=== PATIENT | female | born 1965 | race Caucasian/White ===

== ENCOUNTER → 2021-01-23 11:50 | Outpatient (CLI) | payer BC, SELFPAY ==
--- NOTE | ~2021-01-23 | XR_ITS ---
XR knee RT min 4V 01/23/2021 12:44 INDICATION: Right knee pain PROCEDURE: 4 views right knee COMPARISON: No prior studies for comparison. FINDINGS: Fracture, dislocation or subluxation is not identified. The soft tissues appear within norm al limits. No foreign bodies are identified. IMPRESSION: 1: NO ACUTE BONE OR JOINT ABNORMALITY IDENTIFIED. Reviewed, dictated and finalized at location A.
== END ==
PROVIDERS: PCP Physician Assistant; Visit Provider Family Medicine
DX: M25.561 Pain in right knee (principal)
CPT/HCPCS: 73564

== ENCOUNTER → 2023-03-02 15:57 | Outpatient (CLI) | payer OTHER, SELFPAY ==
--- NOTE | ~2023-03-02 | MM_ITS ---
EXAMINATION: MM screening brinda BI w jana HISTORY: Screening mammogram TECHNIQUE: Craniocaudal and mediolateral oblique 3-D tomosynthesis images were obtained and synthetic 2-D images were generated. CAD analysis was submitted and interpreted. COMPARISON: 12/07/2011 BREAST PARENCHYMAL COMPOSITION: There are scattered areas of fibroglandular density. FINDINGS: No suspicious mass, calcification, or architectural distortion are identified in either lauren ast to suggest malignancy. There has been no suspicious interval change. IMPRESSION: 1. No mammographic evidence of malignancy. 2. Recommend routine screening mammography in one year. BI-RADS Category 1: Negative Reviewed, dictated and finalized at location A.
== END ==
PROVIDERS: PCP Obstetrics & Gynecology; Visit Provider Obstetrics & Gynecology
DX: Z12.31 Encounter for screening mammogram for malignant neoplasm of breast (principal)
CPT/HCPCS: 77063; 77067

== ENCOUNTER 2024-03-15 08:40 | Outpatient (CLI) | payer OTHER, SELFPAY ==
--- NOTE | ~2024-03-15 | MR_ITS ---
MRI of the left hindfoot Clinical history: Pain Technique: Coronal proton-density and proton-density fat-sat images, axial proton-density and proton- density fat-sat images, and sagittal proton-density and proton-density fat-sat images were acquired. Findings: Syndesmotic ligaments are intact. Anterior and posterior talofibular ligaments, and calcane ofibular ligament are intact. Deltoid ligament is intact. Medial flexor tendons, peroneus longus tendon, anterior extensor tendons, and Achilles tendon are int act. There is a longitudinal split tear of the peroneus brevis tendon just distal to the lateral mall eolar tip. There is no osteochondral lesion of the talar dome. There is extensive amorphous marrow edema of the medial cuneiform. Suspected focal linear insufficiency fracture at the proximal aspect the medial cun eiform. Remaining bone marrow signals are essentially unremarkable. There is moderate degenerative ar ticulation of the navicular with the medial cuneiform. There is moderate degenerative change of the f irst TMT joint. Plantar fascia is intact, mild thickening and increased signal proximally, but no surrounding soft ti ssue edema. Small plantar calcaneal spur present. Intrinsic musculature of the foot is unremarkable.. Impression: Findings consistent with focal insufficiency fracture the proximal aspect of the medial cuneiform wit h extensive surrounding marrow edema. Longitudinal split tear of the peroneus brevis tendon, as detailed above. Moderate degenerative change of the medial naviculocuneiform articulation and the first TMT joint. Reviewed, dictated and finalized at location . Impression: Findings consistent with focal insufficiency fracture the proximal aspect of th e medial cuneiform with extensive surrounding marrow edema. Longitudinal split tear of the peroneus brevis tendon, as detailed above. Moderate degenerative change of the medial naviculocuneiform articulation and t he first TMT joint.
== END 2024-03-15 08:41 ==
LOC: MICIMG 08:40
PROVIDERS: PCP Family Medicine
DX: M66.272 Spontaneous rupture of extensor tendons, left ankle and foot (principal); M65.872 Other synovitis and tenosynovitis, left ankle and foot; M77.52 Other enthesopathy of left foot and ankle; S86.312A Strain of muscle(s) and tendon(s) of peroneal muscle group at lower leg level, left leg, initial encounter; M19.072 Primary osteoarthritis, left ankle and foot; X58.XXXA Exposure to other specified factors, initial encounter
CPT/HCPCS: 73718

== ENCOUNTER 2025-07-25 13:42 | Emergency (ER) | payer OTHER, SELFPAY ==
--- OUTSIDE RECORDS SUMMARY | 2007-04-19 10:55 | XMS_ITS | Continuity of Care Document ---
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 , [address], [place], [address], [place]. tel:[phone] Referring Provider: Hector Mackenzie, [address] [place] [address], [address]. tel:[phone] Family History Family Member Type Diagnosis Age At Onset No Information Payers Payer name Insurance type Covered green party ID Authorcaseya lisetjace(s) [facility] [id number] Social History Type Description Quantity Date Captured Comments Sex Female Smoking Status No Information Chief Complaint And Reason For Visit No Information Reason For Referral Reason For Referral No Information History Of Present Illness Encounter Date Complaint History Of Prese nt Illness No Information Functional Status Date Functional Assessmen t No Information Instructions Date Instruction Additional Infor mation No Information Assessments Type Assessment Date No Information Patient Care Teams Name Effective Dates (start - stop) Status Members No Information
--- OUTSIDE RECORDS SUMMARY | 2007-04-19 10:55 | XMS_ITS | Continuity of Care Document ---
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 , [address], [place], [address], [place]. tel:[phone] Referring Provider: Hector Mackenzie, [address] [place] [address], [address]. tel:[phone] Family History Family Member Type Diagnosis Age At Onset No Information Payers Payer name Insurance type Covered alliance party ID Authorcaseya lisetjace(s) [facility] [id number] Social History Type Description Quantity Date Captured [...]
--- NOTE | ~2025-07-25 | XR_ITS ---
EXAMINATION: XR chest 2V 07/25/2025 14:20 INDICATION: Chest pressure PROCEDURE: 2 view chest COMPARISON: No prior studies for comparison. FINDINGS: The lungs are clear. The cardiomediastinal silhouette is within normal limits. There are no pleural effusions. There is no pneumothorax suspected. IMPRESSION: 1: NO ACUTE CARDIOPULMONARY DISEASE. Reviewed, dictated and finalized at location O.
--- NOTE | 2025-07-25 13:43 | ECG_ITS ---
Test Date: 2025-07-25 13:51:44 Measurements Intervals [place] Rate: 69 P: 51 NE: 183 QRS: 21 QRSD: 91 T: 30 QT: 383 QTc: 411 Interpretive Statements SINUS RHYTHM LOW QRS VOLTAGE IN PRECORDIAL LEADS [QRS DEFLECTION < 1.0 mV IN CHEST LEADS] WITHIN NORMAL LIMITS No previous ECG available for comparison Electronically Signed On 07-26-2025 12:43:31 CDT by Adarsh Salas M.D.
[2025-07-25 14:00] VITALS: BP 143/83; PULSE 73; PULSE 78; RESP 16; TEMP 36.8; O2SAT 100
[2025-07-25 14:13] LABS: Hematocrit 42.9 % (37.0-47.0); Hemoglobin 14.6 g/dL (12.0-15.0); Immature Granulocyte Percent A 0.3 % (0-0.5); Lymphocytes Absolute Auto 3.06 K/mm3 (0.9-3.2); Mean Corpuscular HGB Conc 34.0 g/dl (32-36); Mean Corpuscular Hemoglobin 30.9 pg (26-34); Mean Corpuscular Volume 90.9 fl (80-100); Nucleated Red Blood Cells Absolute Auto 0.000 K/mm3 (0.0-0.012); Nucleated Red Blood Cells Perc 0.0 % (0.0-0.2); Platelet Count Result 370 k/mm3 (150-375); Red Blood Count 4.72 M/mm3 (4.2-5.4); White Blood Count 6.7 K/mm3 (4.5-10.0)
--- OUTSIDE RECORDS SUMMARY | 2025-07-25 14:25 | XMS_ITS | Data Portability ---
Author Organization [place] [facility] [employer], Main Office Address [address] [place] [address] Care Team Providers Care Application Development Specialist Name Role Phone JON QUINTERO Primary Care Provider JON QUINTERO Referring Provider [phone] Assessment No assessment recorded. Plan of Treatment Reminders Order Date Submit Date Provider Last Modified By Organization Details Last Modified Time Details Appointments None recorded. Lab vitamin B12 + folate, serum or blood 2022 023 [employer] [facility], [address], [place], [address], 3 10:13:39 T3, free, serum or plasma 2022 023 [employer] [facility], [address], [place], [address], 3 10:13:44 T4, free, serum 2022 023 [employer] [facility], [address], [place], [address], 3 10:13:42 TSH, serum or plasma 2022 023 [employer] [facility], [address], [place], [address], 3 10:13:41 CMP, serum or plasma 2022 023 [employer] [facility], [address], [place], [address], 3 10:15:00 Referral None recorded. Procedures None recorded. Surgeries None recorded. Imaging None recorded. Medication Orders cyanocobala min (vit B-12) 1,000 mcg/mL injection solution 2022 023 [email or web address] [facility], [address] [place] [address], [address], 3 14:11:46 Prempro 0.3 mg-1.5 mg tablet 2022 023 [id number] [employer] [facility], [address] [facility], [place], [place], [id number], 3 14:11:46 Synthroid 100 mcg tablet 2022 023 [id number], [address] [place] [address], [address], 3 14:11:46 Patient TargetsNo targets recorded. Patient InstructionsNo instructions recorded. Reason for Referral None Reported. Results Created Date Observation Date Name Description Value Unit Range Abnormal Flag Note LastModifiedBy Organization Detail LastModifiedTime 08/12/2008/19/2022 VITAM IN B12/F OLATE , SERUM PANEL vitamin B12 414 pg/mL 200-11 00 normal Not Available [facility] [employer] [address], [address], 08/19/2022 09:49:51 08/12/2008/19/2022 VITAM IN B12/F OLATE , SERUM PANEL folate, serum 10.0 NG/mL normal Refer ence Range Low: <3.4 Borde rline : 3.4-5 .4 Anjali l: >5.4 Not Available [facility] [address] [place], [address], 08/19/2022 09:49:51 08/12/2008/19/2022 CORTI MOISÉS, A.M. cortisol, A.M. 0.5 mcg/d L low Refer ence Range 8 a.m. (7-9 a.m.) Speci men: 4.0-2 2.0 Not Available [address], [address], 08/19/2022 09:49:50 08/12/20 22 08/19/2022 TSH TSH 0.08 mIU/L low Refer ence Range > or = 20 Years 0.40- 4.50 Pregn corina Range s First trime ster 0.26- 2.66 Secon d trime ster 0.55- 2.73 Third trime ster 0.43- 2.91 Not Available [address], [address], 08/19/2022 09:49:49 08/12/20 22 08/19/2022 T4, FREE T4, free 1.4 NG/dL 0.8-1. 8 normal Not Available [address], [address], 08/19/2022 09:49:49 08/12/2008/19/2022 THYRO ID PEROX IDASE AND THYRO GLOBU ESSIE ANTIB ODIES thyroglobuli n antibodies 40 IU/mL < or = 1 high Not Available [address], [address], 08/19/2022 09:49:48 08/12/2008/19/2022 THYRO ID PEROX IDASE AND THYRO GLOBU ESSIE ANTIB ODIES thyroid peroxidase antibodies 75 IU/mL <9 high Not Available [address], [address], 08/19/2022 09:49:48 08/12/2008/19/2022 DEXAM ETHAS ONE dexamethason e 445 NG/dL Refer ence Range s for Dexam ethas one: Basel ine: Less than 20 ng/dL 1 mg dexam ethas one overn ight: 180-5 50 ng/dL (8:00 -10:0 0 AM) This test was devel oped and its jacinto tical perfo rmanc e eliana cteri stics have been deter mined by [facility] . It has not been clear ed or appro nolvia by FDA. This assay has been valid ated pursu ant to the CLIA regul ation s and is used for clini kierra purpo ses. Not Available [facility] [address] [place] [address] [place], [address], 08/19/2022 09:49:47 08/12/2008/19/2022 COMPR EHENS DANIEL METAB OLIC PANEL glucose 107 mg/dL 65-99 high Fasti ng refer ence inter bj For someo ne witho ut known diabe radha, a gluco se value betwe en 100 and 125 mg/dL is consi stent with predi abete s and shoul d be confi rmed with a follo w-up test. Not Available [facility] [address] [address] [place], [address], 08/19/2022 09:49:46 08/12/2008/19/2022 COMPR EHENS DANIEL METAB OLIC PANEL urea nitrogen (BUN) 23 mg/dL 7-25 normal Not Available [facility] [address] [address] [place], [address], 08/19/2022 09:49:46 08/12/2008/19/2022 COMPR EHENS DANIEL METAB OLIC PANEL creatinine 0.94 mg/dL 0.50-1 .03 normal Not Available [facility] [address] [address] [place], [address], 08/19/2022 09:49:46 08/12/2008/19/2022 COMPR EHENS DANIEL METAB OLIC PANEL eGFR 72 mL/mi n/1.7 3m2 > or = 60 normal The eGFR is based on the CKD-E PI 2020 equat ion. To calcu late the new eGFR from a previ ous Creat inine or Cysta tin C resul t, go to https ://marcos ye.westley nietoy.o amaya/pr ofess ional s/ kdoqi /gfr% 5Fcal culat or Not Available [address], [address], 08/19/2022 09:49:46 08/12/20 22 08/19/2022 COMPR EHENS DANIEL METAB OLIC PANEL BUN/creatini ne ratio not applic able (calc ) 6-22 Not Available [address], [address], 08/19/2022 09:49:46 08/12/2008/19/2022 COMPR EHENS DANIEL METAB OLIC PANEL sodium 139 mmol/ L 135-14 6 normal Not Available [address], [address], 08/19/2022 09:49:46 08/12/20 22 08/19/2022 COMPR EHENS DANIEL METAB OLIC PANEL potassium 3.9 mmol/ L 3.5-5. 3 normal Not Available [address], [address], 08/19/2022 09:49:46 08/12/20 22 08/19/2022 COMPR EHENS DANIEL METAB OLIC PANEL chloride 104 mmol/ L 98-110 normal Not Available [address], [address], 08/19/2022 09:49:46 08/12/20 22 08/19/2022 COMPR EHENS DANIEL METAB OLIC PANEL carbon dioxide 30 mmol/ L 20-32 normal Not Available [address], [address], 08/19/2022 09:49:46 08/12/20 22 08/19/2022 COMPR EHENS DANIEL METAB OLIC PANEL calcium 10.2 mg/dL 8.6-10 .4 normal Not Available [facility] [address], [address], 08/19/2022 09:49:46 08/12/2008/19/2022 COMPR EHENS DANIEL METAB OLIC PANEL protein, total 6.9 g/dL 6.1-8. 1 normal Not Available [address], [address], 08/19/2022 09:49:46 08/12/2008/19/2022 COMPR EHENS DANIEL METAB OLIC PANEL albumin 4.4 g/dL 3.6-5. 1 normal Not Available [address], [address], 08/19/2022 09:49:46 08/12/2008/19/2022 COMPR EHENS DANIEL METAB OLIC PANEL globulin 2.5 g/dL_ (calc ) 1.9-3. 7 normal Not Available [address], [address], 08/19/2022 09:49:46 08/12/2008/19/2022 COMPR EHENS DANIEL METAB OLIC PANEL albumin/glob ulin ratio 1.8 (calc ) 1.0-2. 5 normal Not Available [address], [address], 08/19/2022 09:49:46 08/12/2008/19/2022 COMPR EHENS DANIEL METAB OLIC PANEL bilirubin, total 0.5 mg/dL 0.2-1. 2 normal Not Available [address], [address], 08/19/2022 09:49:46 08/12/2008/19/2022 COMPR EHENS DANIEL METAB OLIC PANEL alkaline phosphatase 62 U/L 37-153 normal Not Available [place] [address] [place], [address], 08/19/2022 09:49:46 08/12/20 22 08/19/2022 COMPR EHENS DANIEL METAB OLIC PANEL AST 18 U/L 10-35 normal Not Available [address], [address], 08/19/2022 09:49:46 08/12/20 22 08/19/2022 COMPR EHENS DANIEL METAB OLIC PANEL ALT 28 U/L 6-29 normal Not Available [address], [address], 08/19/2022 09:49:46 03/08/20 23 03/10/2023 LIPID PANEL , STAND [place]TE cholesterol, total 211 mg/dL <200 high Not Available [address], [address], 03/10/2023 12:29:17 03/08/20 23 03/10/2023 LIPID PANEL , [place] HDL cholesterol 87 mg/dL > or = 50 normal Not Available [address], [address], 03/10/2023 12:29:17 03/08/20 23 03/10/2023 LIPID PANEL , STAND [place] triglyceride s 57 mg/dL <150 normal Not Available [address], [address], 03/10/2023 12:29:17 03/08/20 23 03/10/2023 LIPID PANEL , [place]AND [place] LDL-choleste rol 110 mg/dL _(kierra c) high Refer ence range : <100 Brayden able range <100 mg/dL for prima ry preve ntion ; <70 mg/dL for patie nts with CHD or diabe tic patie nts with > or = 2 CHD risk facto rs. LDL-C is now calcu lated using the Josephine n-Hop kins buraku henri n, which is a valid ated novel metho d javii carolyn rankin r accur acy than the Fried nahomy equat ion in the estim ation of LDL-C . Josephine n SS et al. NENITA. 2013; 310(9 2): 2061- 2068 (http ://ed ucati on.CoContest Zafar russoBorean Ph[employer]. com/f aq/FA Q164) Not Available [address], [address], 03/10/2023 12:29:17 03/08/20 23 03/10/2023 LIPID PANEL , STAND MAYTE chol/HDLC ratio 2.4 (calc ) <5.0 normal Not Available [facility] [address], [address], 03/10/2023 12:29:17 03/08/20 23 03/10/2023 LIPID PANEL , STAND [place] non HDL cholesterol 124 mg/dL _(kierra c) <130 normal For patie nts with diabe radha plus 1 major ASCVD risk facto r, treat ing to a non-H DL-C goal of <100 mg/dL (LDL- C of <70 mg/dL ) is consi dered a justina mejia c optio n. Not Available [address], [address], 03/10/2023 12:29:17 03/08/20 23 03/10/2023 COMPR EHENS DANIEL METAB OLIC PANEL glucose 91 mg/dL 65-99 normal Fasti ng refer ence inter bj Not Available [facility] [address], [address], 03/10/2023 12:29:17 03/08/20 23 03/10/2023 COMPR EHENS DANIEL METAB OLIC PANEL urea nitrogen (BUN) 21 mg/dL 7-25 normal Not Available [facility] [address], [address], 03/10/2023 12:29:17 03/08/20 23 03/10/2023 COMPR EHENS DANIEL METAB OLIC PANEL creatinine 0.83 mg/dL 0.50-1 .03 normal Not Available [address], [address], 03/10/2023 12:29:17 03/08/20 23 03/10/2023 COMPR EHENS DANIEL METAB OLIC PANEL eGFR 83 mL/mi n/1.7 3m2 > or = 60 normal The eGFR is based on the CKD-E PI 2020 equat ion. To calcu late the new eGFR from a previ ous Creat inine or Cysta tin C resul t, go to https ://marcos w.westley moctezuma.o amaya/pr ofess ional s/ kdoqi /gfr% 5Fcal culat or Not Available [address], [address], 03/10/2023 12:29:17 03/08/20 23 03/10/2023 COMPR EHENS DANIEL METAB OLIC PANEL BUN/creatini ne ratio NOT APPLIC ABLE (calc ) 6-22 Not Available [address], [address], 03/10/2023 12:29:17 03/08/20 23 03/10/2023 COMPR EHENS DANIEL METAB OLIC PANEL sodium 137 mmol/ L 135-14 6 normal Not Available [address], [address], 03/10/2023 12:29:17 03/08/20 23 03/10/2023 COMPR EHENS DANIEL METAB OLIC PANEL potassium 4.1 mmol/ L 3.5-5. 3 normal Not Available [address], [address], 03/10/2023 12:29:17 03/08/20 23 03/10/2023 COMPR EHENS DANIEL METAB OLIC PANEL chloride 98 mmol/ L 98-110 normal Not Available [address], [address], 03/10/2023 12:29:17 03/08/20 23 03/10/2023 COMPR EHENS DANIEL METAB OLIC PANEL carbon dioxide 33 mmol/ L 20-32 high Not Available [address], [address], 03/10/2023 12:29:17 03/08/20 23 03/10/2023 COMPR EHENS DANIEL METAB OLIC PANEL calcium 9.8 mg/dL 8.6-10 .4 normal Not Available [address], [address], 03/10/2023 12:29:17 03/08/20 23 03/10/2023 COMPR EHENS DANIEL METAB OLIC PANEL protein, total 6.8 g/dL 6.1-8. 1 normal Not Available [address], [address], 03/10/2023 12:29:17 03/08/20 23 03/10/2023 COMPR EHENS DANIEL METAB OLIC PANEL albumin 4.3 g/dL 3.6-5. 1 normal Not Available [address], [address], 03/10/2023 12:29:17 03/08/20 23 03/10/2023 COMPR EHENS DANIEL METAB OLIC PANEL globulin 2.5 g/dL_ (calc ) 1.9-3. 7 normal Not Available [address], [address], 03/10/2023 12:29:17 03/08/20 23 03/10/2023 COMPR EHENS DANIEL METAB OLIC PANEL albumin/glob ulin ratio 1.7 (calc ) 1.0-2. 5 normal Not Available [address], [address], 03/10/2023 12:29:17 03/08/20 23 03/10/2023 COMPR EHENS DANIEL METAB OLIC PANEL bilirubin, total 0.7 mg/dL 0.2-1. 2 normal Not Available [facility] [address], [address], 03/10/2023 12:29:17 03/08/20 23 03/10/2023 COMPR EHENS DANIEL METAB OLIC PANEL alkaline phosphatase 63 U/L 37-153 normal Not Available [facility] [employer] [place] [address] [place], [address], 03/10/2023 12:29:17 03/08/20 23 03/10/2023 COMPR EHENS DANIEL METAB OLIC PANEL AST 21 U/L 10-35 normal Not Available [facility] [address], [address], 03/10/2023 12:29:17 03/08/20 23 03/10/2023 COMPR EHENS DANIEL METAB OLIC PANEL ALT 20 U/L 6-29 normal Not Available [facility] [address], [address], 03/10/2023 12:29:17 03/08/20 23 03/10/2023 THYRO ID PEROX IDASE ANTIB ODIES thyroid peroxidase antibodies 51 IU/mL <9 high Not Available [address], [address], 03/10/2023 12:29:18 03/08/2003/10/2023 INSUL IN insulin 11.3 uIU/m L normal Refer ence Range < or = 18.4 Risk: Optim al < or = 18.4 Moder ate NA High >18.4 Adult cardi ovasc ular event risk categ ory cut point s (opti mal, moder ate, high) are based on Insul in Refer ence Inter bj studi es perfo rmed at [facility] in 2021. Not Available [facility] [address], [address], 03/10/2023 12:29:19 03/08/20 23 03/10/2023 VITAM IN B12/F OLATE , SERUM PANEL vitamin B12 449 pg/mL 200-11 00 normal Not Available [address], [address], 03/10/2023 12:29:19 03/08/20 23 03/10/2023 VITAM IN B12/F OLATE , SERUM PANEL folate, serum 11.4 NG/mL normal Refer ence Range Low: <3.4 Borde rline : 3.4-5 .4 Anjali l: >5.4 Not Available [address], [address], 03/10/2023 12:29:19 03/08/2003/10/2023 T3, FREE T3, free 3.9 pg/mL 2.3-4. 2 normal Not Available [address], [address], 03/10/2023 12:29:20 03/08/2003/10/2023 TSH+F REE T4 TSH 0.09 mIU/L low Refer ence Range > or = 20 Years 0.40- 4.50 Pregn corina Range s First trime ster 0.26- 2.66 Secon d trime ster 0.55- 2.73 Third trime ster 0.43- 2.91 Not Available [address], [address], 03/10/2023 12:29:20 03/08/2003/10/2023 TSH+F REE T4 T4, free 1.5 NG/dL 0.8-1. 8 normal Not Available [address], [address], 03/10/2023 12:29:20 03/08/2003/10/2023 HEMOG LOBIN A1C hemoglobin A1C 5.3 %_of_ total _HGB <5.7 normal For the purpo se of margi bonilla for the prese nce of diabe radha: <5.7% Consi stent with the absen ce of diabe radha 5.7-6 .4% Consi stent with incre ased risk for diabe radha (pred iabet es) > or =6.5% Consi stent with diabe radha This assay resul t is consi stent with a decre ased risk of diabe radha. Curre ntly, no conse nsus exist s amber leon use of hemog lobin A1c for diagn osis of diabe radha in child howard. Accor ding to Ameri can Diabe radha Assoc iatio n (ADA) guide lines , hemog lobin A1c <7.0% repre sents optim al contr ol in non-p regna nt diabe tic patie nts. Diffe rent metri cs may apply to speci fic patie nt popul ation s. Stand ards of Medic al Care in Diabe radha(A DA). Not Available [address], [address], 03/10/2023 12:29:21 Result Notes None recorded. Problems Name Problem SNOMED Code Status Onset Date Resolution Date Notes Provider Name and Address Organization Details Recorded Time Dyspareuni a 01569746 Active Not Available [facility] 3 08:46:18 Closed fracture of head of left radius 0465421602143 9101 Active 2021 Not Available [facility] 3 08:46:18 Pain of left elbow joint 4923676358408 9104 Active 2021 Not Available [facility] 3 08:46:18 Hypothyroi dism 21521152 Active 2021 Not Available [facility] 3 08:46:18 Swelling of bilateral lower limbs 009978710 Active 2021 Not Available [facility] 3 08:46:19 Weight gain 2780235 Active 2021 Not Available [facility] 3 08:46:19 Impaired fasting glycemia 124142611 Active 2021 Not Available [facility] 3 08:46:18 Obesity 404597607 Active 2021 Not Available [facility] 3 08:46:18 Vitamin B12 deficiency (non anemic) 18665218 Active 2022 Jamilah Medel MD [address], [facility] [address], [place], [address] , [facility] [employer] [facility] 3 10:09:10 Menopausal symptom 61949919 Active 2022 Jamilah Medel MD [address], [facility] [address], [place], [address] , [facility] [employer] [facility] 3 10:13:09 Problem Notes None recorded. Procedures Surgical History Date Name Laterality Status Provider Name and Address Organization Details Recorded Time Breast reduction completed Not Available [facility] 12/30/2022 08:43:36 Imaging Results None recorded. Procedure Notes None recorded. Medical Equipment None Reported. Allergies No known drug allergies Medications Name Sig Start Date Stop Date Status Note LastModified by Organization Details LastModified Time amoxicillin 500 mg capsule TAKE 1 CAPSULE BY MOUTH THREE TIMES A DAY UNTIL FINISHED 08/10 completed Not Available Not Available Not Available Mirena 21 mcg/24 hr (up to 8 years) 52 mg intrauterin e device Take 1 device by intrauter ine route. 03/08 completed Not Available Not Available Not Available prednisone 10 mg tablet TAKE 4 TABS ONCE A DAY X3DAY,3TA BS EVERY DAY X3DAY,2TA B EVERY DAY X3DAY,1TA B EVERY DAY X3DAYS 03/08 completed Not Available Not Available Not Available paroxetine 10 mg tablet TAKE 1 TABLET BY MOUTH EVERY DAY IN THE MORNING 08/10 completed Not Available Not Available Not Available azithromyci n 250 mg tablet TAKE 2 TABLETS BY MOUTH TODAY, THEN TAKE 1 TABLET DAILY FOR 4 DAYS 03/08 completed Not Available Not Available Not Available ofloxacin 0.3 % eye drops 02/08 completed Not Available Not Available Not Available Synthroid 125 mcg tablet TAKE 1 TABLET BY MOUTH EVERY DAY 08/10 completed Not Available Not Available Not Available prednisone 20 mg tablet TAKE 1 TABLET BY MOUTH EVERY DAY FOR 10 DAYS 04/01 completed Not Available Not Available Not Available Synthroid 100 mcg tablet Take 1 tablet every day by oral route in the morning for 90 days. 2022 active Not Available Not Available Not Avai lable phentermine 15 mg capsule active Not Available Not Available Not Available penicillin V potassium 500 mg tablet active Not Available Not Available Not Available phentermine 37.5 mg tablet TAKE 1 TABLET BY MOUTH EVERY DAY 08/10 completed Not Available Not Available Not Available Tamiflu 75 mg capsule 02/08 completed Not Available Not Available Not Available gentamicin 0.3 % eye drops USE 1 DROP IN AFFECTED EYE(S) EVERY 4 HOURS FOR 7 DAYS 03/19 completed Not Available Not Available Not Available dexamethaso ne 1 mg tablet TAKE AT 10 P.M. THE NIGHT BEFORE CORTISOL TEST active Not Available Not Available No t Available benzonatate 100 mg capsule 02/08 completed Not Available Not Available Not Available cyanocobala min (vit B-12) 1,000 mcg/mL injection solution Inject 1 mL every week by subcutane ous route in the morning for 90 days. active Not Available Not Available No t Available Synthroid 112 mcg tablet TAKE 1 TABLET BY MOUTH EVERY DAY IN THE MORNING ON EMPTY STOMACH FOR 90 DAYS active Not Available Not Available No t Available triamterene 75 mg-hydrochl orothiazide 50 mg tablet TAKE ONE TABLET BY MOUTH TWICE DAILY active Not Available Not Available No t Available amoxicillin 875 mg-potassiu m clavulanate 125 mg tablet TAKE 1 TABLET BY MOUTH EVERY 12 HOURS FOR 10 DAYS 08/10 completed Not Available Not Available Not Available Ortho Micronor 0.35 mg tablet Take 1 tablet every day by oral route. 04/01 completed Not Available Not Available Not Available Premarin 0.625 mg/gram vaginal cream 02/22 completed Not Available Not Available Not Available Prempro 0.3 mg-1.5 mg tablet Take 1 tablet every day by oral route in the morning for 90 days. active Not Available Not Available No t Available Aleve 2021 active Not Available Not Available Not Avai lable Advil 2021 active Not Available Not Available Not Avai lable ProAir HFA 90 mcg/actuati on aerosol inhaler INAHLE 2 PUFFS BY MOUTH NEEDED EVERY 4 HRS INHALATIO N active Not Available Not Available No t Available GaviLyte-N 420 gram oral solution 03/08 completed Not Available Not Available Not Available BD Insulin Syringe Ultra-Fine 1 mL 31 gauge x 03/16 active Not Available Not Available Not Available Ashlyna 0.15 mg-30 mcg (84)/10 mcg(7) tablets,3 month dose pack 1 po daily active Not Available Not Available No t Available Vitals Date Recorded Body height Body mass index (BMI) Body weight Body temperature Heart rate Systolic And Diastolic Provider Name and Address Organization Details Last Updated DateTime 3 165.1 cm 32.3 kg/m2 42439.9 2 g 97.6 [degF] 74 /min 122/88 mm[Hg] Marnie Peck Edd [facility] [employer] [facility] 3 09:58:17 Date Recorded Body height Body mass index (BMI) Body weight Systolic And Diastolic Provider Name and Address Organization Details Last Updated DateTime 04/19/2023 165.1 cm 31.8 kg/m2 15559.86 g 124/76 mm[Hg] Marnie Peck Edd [facility] [employer] [facility] 04/19/2023 09:48:23 Date Recorded Body height Body mass index (BMI) Body weight Systolic And Diastolic Provider Name and Address Organization Details Last Updated DateTime 05/17/2023 165.1 cm 32.1 kg/m2 68390.05 g 120/86 mm[Hg] Mariaa Kennedy RN [facility] [employer] [facility] 05/17/2023 09:24:44 Date Recorded Body mass index (BMI) Body height Oxygen saturation Oxygen saturation in Arterial blood by Pulse oximetry Heart rate Body temperature Body weight Systolic And Diastolic Provider Name and Address Organization Details Last Updated DateTime 2 36.2 kg/m2 165.1 cm 98 % 98 % 68 /min 97.6 [degF] 60481.4 2 g 135/100 mm[Hg] Not Available [facility] 3 08:44:01 Date Recorded Body mass index (BMI) Body height Oxygen saturation Oxygen saturation in Arterial blood by Pulse oximetry Heart rate Body temperature Body weight Systolic And Diastolic Provider Name and Address Organization Details Last Updated DateTime 2 36.4 kg/m2 165.1 cm 98 % 98 % 65 /min 97.8 [degF] 73033.7 3 g 120/85 mm[Hg] Not Available [facility] 08:44:01 Social History Question Answer Notes LastModified by [employer] Details LastModified Time Tobacco Smoking Status Never Smoker Not Available [facility] 12/30/2022 08:43:18 What Is Your Level Of Caffeine Consumption? Moderate [id number] Information not available 12/30/2022 What Type Of Diet Are You Following? SPECIFIC Mainly Protein & Veggies [id number] Information not available 12/30/2022 How Many Days Of Moderate To Strenuous Exercise, Like A Brisk Walk, Did You Do In The Last 7 Days? 5 [id number] Information not available 12/30/2022 What Is Your Relationship Status? [id number] Information not available 12/30/2022 Do You Have Any Dietary Restrictions? No [id number] Information not available 12/30/2022 Sex: Female Functional Status Question Answer Note LastModified by [employer] Details LastModified Time What is your level of alcohol consumption? Occasional [id number] Information not available 12/30/2022 What is your occupation? [employer] [id number] Information not available 12/30/2022 What is your exercise level? Moderate Spin class, 3x per week & walks about 3 miles [id number] Information not available 12/30/2022 Mental Status None recorded. Family History Relationship Description Onset Age of this Age Resolved Age Notes LastModified by Organization Details LastModified Time Mother Family history of malignant neoplasm [id number] Not available 12/30/2022 08:43:37 Medical History Condition Response EYE PROBLEMS Y HEADACHES/MIGRAINES Y OBESITY Y INSOMNIA Y HYPOTHYROIDISM Y Gynecological HistoryNo gynecological history recorded. Obstetrics History GPAL:G 0 P 0 0 0 0 Past Encounters Encounter ID Performer Location Encounter Start Date Encounter Closed Date Diagnosis/Indication Diagnosis SNOMED-CT Code Diagnosis ICD10 Code Diagnosis IMO Codes Diagnosis Note [id number] Arben Adamson MD [facility] [place] [address] [place] [address] 04/01/2022 00:00:00 04/01/2022 13:12:49 [id number] Abren Adamson MD [facility] [place] [address] [place] [address] 04/08/2022 00:00:00 04/08/2022 11:32:03 [id number] Arben Adamson MD [facility] [place] [address] [place] [id number] 05/07/2022 00:00:00 05/07/2022 14:43:27 [id number] Arben Adamson MD [facility] [place] [address] [place] [address] 06/15/2022 00:00:00 06/15/2022 09:26:18 [id number] [facility] [place] [address] [address] [place] [address] 08/10/2022 00:00:00 08/10/2022 14:02:56 [id number] [facility] [address] [place] [address] 09/11/2022 00:00:00 09/11/2022 10:04:12 [id number] Jamilah Medel MD [facility] [address] [place] [address] 03/19/2023 09:24:46 03/19/2023 10:40:33 Hypothyroidism [id number] E03.9 FT4 high normal range- will down titrate to 100 mcg on synthroid as she has lost over 20 pounds since September. She was reminded to take her synthroid on empty stomach with glass of water and wait one hour to eat or have her coffee in morning and up to 4 hours if ever taking any heartburn or reflux medication s to help optimize absorption . Discussed paleo like diet with restrictio n of GMOs to help with energy and to optimize absorption of vitamins and minerals and reduce inflammati on. continue phentermin e 15 mg daily as patient tolerating well- she is compliant and will have frequent BP testing to assure she is in range and tolerating based on cardiovasc ular monitoring . Vitamin B1 2 deficiency (non anemic) [id number] E53.8 will trial on B12 injections to help with absorption and energy. Menopausal symptom [id number] N95.1 Will trial on low dose combined prempro. Goal is to take the lowest dose of estradiol /progester one possible to take away climacteri c symptoms, support bone and cardiovasc ular health for up to 5 years no more than 10 years depending on patient tolerabili ty and female health. She voiced understand ing and wishes to go on treatment. [id number] Jamilah Medel MD [facility] [address] [place] [address] 04/19/2023 09:34:08 04/19/2023 11:21:26 Blood pressure taking [id number] Z01.30 Patient blood pressure in ideal range- will continue on low dose phentermin e for weight management . [id number] Jamilah Medel MD [facility] [address] [place] [address] 05/17/2023 09:13:31 05/17/2023 10:52:31 Health Concerns Section Related Observation LastModified by Organization Detai ls LastModified Time None Recorded Concern Status LastModified by Organization Details LastModified Time None Recorded Advance Directives Directive None Recorded Payers Insurance Date Sequence Insurance Name Policy Number Policy Gonzalez Covered Member ID Gonzalez Member ID Guarantor Name 06/14/2023 1 [facility] [id number] Danya Gray [id number] Danya Gray Notes Date Note Type Note Provider Name and Address Organization Details Recorded Time 03/19/2023 text/html ROS as noted in the HPI 57 yo female comes in for follow up in management of hypothyroidism, impaired fasting glucose and obesity. last seen in Sep at that time we continued synthroid 112 mcg daily we started phentermine 15 mg daily. she has lost 23 pounds since September. she has been working on her diet. She is low dairy/ low gluten and mainly doing veggies and protein in her diet. This has helped a lot for her. she has no palpitations or anxiety. does have some fatigue that is worse in afternoon. labs from 03/08/23:tsh of 0.09 uiu/mlft4 of 1.5 ng/dL211/57/87/110 glucose 91 mg/dlcr normallft edzonbd5k 5.3%tpo 51 IU/mlinsulin 11.5 uu/mlb12/folate normal Jamilah Wood, MD [address], [place], [address], [email or web address] [facility] 03/19/2023 10:24:44 04/19/2023 text/html 57 yo female comes in for blood pressure testing for management of weight control on phentermine. Jamilah Medel MD [address], [place], [address], [employer] [place] 04/20/2023 14:18:30 OBGyn Episode No OBEpisode recorded.
[2025-07-25 14:26] LABS: Alanine Aminotransferase 35 U/L (6-35); Albumin Level 4.8 g/dL (3.5-5.1); Alkaline Phosphatase 47 U/L (38-126); Anion Gap 8 mmol/L (4-12); Aspartate Amino Transferase 34 U/L (14-36); Bilirubin,Total 0.4 mg/dL (0.2-1.3); Blood Urea Nitrogen 24 mg/dL (7-17); Calcium 9.6 mg/dL (8.4-10.2); Carbon Dioxide 33 mmol/L (22-30); Chloride 96 mmol/L (98-107); Estimated CRCL calculation 66 ml/min; Estimated Glomerular Filt Rate > 60; Glucose 87 mg/dL (65-110); Lipase 115 U/L (23-300); Potassium 3.1 mmol/L (3.4-5.0); Sodium 137 mmol/L (137-145); Total Protein 8.2 g/dL (6.3-8.2)
[2025-07-25 14:28] LABS: INR 0.9; Partial Thromboplastin Time 25.7 Seconds (22.3-36.8); Prothrombin Time 11.8 Seconds (11.1-14.7)
[2025-07-25 14:30] VITALS: BP 130/69; PULSE 64; RESP 18; O2SAT 100
[2025-07-25 14:38] LABS: Troponin I < 0.012 ng/mL (0.000-0.034)
[2025-07-25] MEDS: ASPIRIN 81 MG CHEWABLE TABLET 324 MG PO (14:45)
[2025-07-25 15:34] VITALS: BP 120/91; PULSE 73; RESP 17; O2SAT 99
--- NOTE | 2025-07-25 16:28 | ED.GENADULT ---
HPI - General Adult General Chief complaint: Chest Pain Stated complaint: chest pain Time Seen by Provider: 07/25/25 14:21 History of Present Illness HPI narrative: This is a 60-year-old female presenting ED with chief of chest pain. Patient says she was eating pretzels around noon when she developed a sharp pain in her neck. First she thought that something had gone down the wrong pipe. The pain then migrated down to the epigastric area and she felt a tightness squeezing around her chest/abdomen. The sensation would come and go. Patient says she felt panicked. Symptoms resolved when she arrived in the emergency department. Patient does not have any diaphoresis, exertional opponent radiation or vomiting. She denies any recent illness fevers or productive cough. No shortness of breath. Patient has been reading about heart attacks in women and has heard that they are atypical and is concerned she is having a heart attack. Patient is asymptomatic. Related Data Home Medications ?Medication ?Instructions ?Recorded ?Confirmed ?Last Taken ?Type estradiol 0.075 mg/24 hr 1 patch transdermal 2XW 11/20/24 12/26/24 Unknown History semiweekly transdermal patch progesterone micronized 200 mg 200 mg PO DAILY 11/20/24 12/26/24 Unknown History capsule semaglutide (weight loss) 0.5 0.5 mg subcut WEEKLY 11/20/24 12/26/24 Unknown History mg/0.5 mL subcutaneous pen injector Allergies Allergy/AdvReac Type Severity Reaction Status Date / Time No Known Allergies Allergy Mild Verified 07/25/25 14:13 [facility] Past Medical History Medical History Obesity Depression Hypothyroidism Surgical History Surgical History H/O colonoscopy (02/04/18) wnl History of gynecological procedure (07/17/08) mirena iud insertion/ removal 02/22/2017 H/O colposcopy with cervical biopsy (01/12/08) COLOPOSCOPY/ CERVICAL Bx - LGSIL Hx of breast reduction, elective (05/01/02) 2001 Family History Family History Mother H/O ovarian cancer Father Aneurysm Grandparent Lung cancer Social History Social History Smoking status: Never smoker Alcohol intake: never Substance use: never Substance use type: does not use Do You Feel Safe in your Home?: Yes Lack of Transportation: No Lack of Food: Never True Current Housing: I Have Housing Concerned About Future Housing: No Difficulty Paying Gas/Electric Bills: No Difficulty Paying for Meds: No Currently Unemployed: No Education: High School Diploma/GED Difficulty w/ Childcare or Family Care: No Living arrangements: with family Additional living arrangements comments: Occupation/Education: occupation Additional occupation/education comments: [employer] Gender identity (if verbalized by the patient): Female Sexual Orientation (if Verbalized by the Patient): Straight or Heterosexual Exam Narrative: APPEARANCE: No apparent distress. Head: atraumatic. EYES: EOMI, NOSE: Atraumatic NECK: Trachea midline RESPIRATORY: No increased rate of breathing clear to auscultation CARDIOVASCULAR: RRR, no peripheral edema ABDOMINAL: Non-distended soft nontender no guarding rebound no CVA tenderness MUSCULOSKELETAl: No obvious deformities NEURO: Alert. Moving 4/4 extremities SKIN:: Warm, dry. Normal color PSYCHIATRIC: Normal affect Course Vital Signs Vital signs: Vital Signs Temperature 98.2 F 07/25/25 14:00 Pulse Rate 73 07/25/25 14:00 Respiratory Rate 16 07/25/25 14:00 Blood Pressure 143/83 H 07/25/25 14:00 Pulse Oximetry 100 07/25/25 14:00 Oxygen Delivery Room Air 07/25/25 14:00 Temperature 98.2 F 07/25/25 14:00 Pulse Rate 65 07/25/25 17:16 Respiratory Rate 18 07/25/25 17:16 Blood Pressure 116/75 07/25/25 17:16 Pulse Oximetry 100 07/25/25 17:16 Oxygen Delivery Room Air 07/25/25 14:30 Medical Decision Making MDM Narrative Medical decision making narrative: -Course: 60-year-old female presenting with an episode of neck pain and chest tightness associated with panic. Patient is concerned she is having a heart attack. Patient's EKGs and labs are reviewed without significant high risk changes. Cardiac risk factors reviewed. Heart score is <4 and it is reasonable for further risk stratification to be performed as outpatient. Pain was not sudden or maximal onset not tearing or ripping quality. No other signs or symptoms suggest aortic dissection. A low risk Wells criteria is noted. PE is felt to be unlikely. No pneumonia seen on evaluation today. Patient is felt to be reasonable candidate for continued evaluation as an outpatient. Patient was re-evaluated is resting comfortably bed. She is speaking and laughing with her family members. symptoms resolved. vs normal. She will be discharged. -DDX includes but is not limited to: ACS pneumonia PE pneumothorax panic attack, anxiety viral syndrome Vital Signs Vital Signs: Vital Signs Temperature 98.2 F 07/25/25 14:00 Pulse Rate 73 07/25/25 14:00 Respiratory Rate 16 07/25/25 14:00 Blood Pressure 143/83 H 07/25/25 14:00 Pulse Oximetry 100 07/25/25 14:00 Oxygen Delivery Room Air 07/25/25 14:00 Temperature 98.2 F 07/25/25 14:00 Pulse Rate 65 07/25/25 17:16 Respiratory Rate 18 07/25/25 17:16 Blood Pressure 116/75 07/25/25 17:16 Pulse Oximetry 100 07/25/25 17:16 Oxygen Delivery Room Air 07/25/25 14:30 Lab Data 07/25/25 14:02 07/25/25 14:02 Labs: Lab Results 07/25/25 07/25/25 Range/Units 14:02 17:03 WBC 6.7 (4.5-10.0) K/mm3 RBC 4.72 (4.2-5.4) M/mm3 Hgb 14.6 (12.0-15.0) g/dL Hct 42.9 (37.0-47.0) % MCV 90.9 (80-100) fl MCH 30.9 (26-34) pg MCHC 34.0 (32-36) g/dl RDW 11.5 (11.5-14.5) % Plt Count 370 (150-375) k/mm3 MPV 9.1 (7.4-10.4) fl Immature Gran % (Auto) 0.3 (0-0.5) % Neut % (Auto) 42.2 L (45.5-73.1) % Lymph % (Auto) 45.9 H (18.3-44.2) % [place] % (Auto) 7.8 (2.6-8.5) % Eos % (Auto) 3.2 (0-4.4) % Baso % (Auto) 0.6 (0.2-1.2) % Lymph # (Auto) 3.06 (0.9-3.2) K/mm3 [place] # (Auto) 0.5 (0.1-0.6) K/mm3 Eos # (Auto) 0.2 (0-0.3) K/mm3 Baso # (Auto) 0.0 (0.0-0.1) K/mm3 Abs Immat Gran (auto) 0.02 (0.00-0.031) K/mm3 Absolute Neuts (auto) 2.8 (1.3-6.7) K/mm3 Absolute Nucleated RBC 0.000 (0.0-0.012) K/mm3 Nucleated RBC % 0.0 (0.0-0.2) % PT 11.8 (11.1-14.7) Seconds INR 0.9 APTT 25.7 (22.3-36.8) Seconds Sodium 137 (137-145) mmol/L Potassium 3.1 L (3.4-5.0) mmol/L Chloride 96 L (98-107) mmol/L Carbon Dioxide 33 H (22-30) mmol/L Anion Gap 8 (4-12) mmol/L BUN 24 H (7-17) mg/dL Creatinine 0.86 (0.7-1.0) mg/dL Estim Creat Clear Calc 66 ml/min Estimated GFR > 60 (59 - ) Glucose 87 (65-110) mg/dL Calcium 9.6 (8.4-10.2) mg/dL Total Bilirubin 0.4 (0.2-1.3) mg/dL AST 34 (14-36) U/L ALT 35 (6-35) U/L Alkaline Phosphatase 47 (38-126) U/L Troponin I < 0.012 < 0.012 (0.000-0.034) ng/mL Total Protein 8.2 (6.3-8.2) g/dL Albumin 4.8 (3.5-5.1) g/dL Lipase 115 (23-300) U/L Discharge Plan Discharge Clinical Impression: Atypical chest pain Patient Disposition: Home Condition: Stable Instructions: Antibiotic Form, Chest Pain (DC) Additional Instructions: You seen emergency department for chest pain. We did not find a definitive cause. Please follow-up with your primary care physician for further management. If you develop any new or worsening symptoms please return to the ED re-evaluation. Patient Language: Italian Prescriptions: No Action progesterone micronized 200 mg capsule 200 mg PO DAILY estradiol 0.075 mg/24 hr patch semiweekly 1 patch transdermal 2XW semaglutide (weight loss) 0.5 mg/0.5 mL pen injector 0.5 mg subcut WEEKLY levothyroxine [Synthroid] 112 mcg tablet 112 mcg PO DAILY Qty: 90 3RF triamterene-hydrochlorothiazid 75-50 mg tablet See Rx Instructions .ROUTE .COMPLEX Qty: 90 3RF Dose Instruction: TAKE 1 TABLET DAILY Rx Instructions: TAKE 1 TABLET DAILY Follow-up/Referrals: Edwin Petersen MD [Primary Care Provider, Family Practice]
[2025-07-25 16:46] VITALS: BP 116/83; PULSE 63; RESP 14; O2SAT 100
--- NOTE | 2025-07-25 17:00 | ECG_ITS ---
Test Date: 2025-07-25 17:43:19 Measurements Intervals [place] Rate: 62 P: 53 UT: 185 QRS: 10 QRSD: 89 T: 16 QT: 399 QTc: 408 Interpretive Statements SINUS RHYTHM LOW QRS VOLTAGE IN PRECORDIAL LEADS [QRS DEFLECTION < 1.0 mV IN CHEST LEADS] Compared to ECG 07/25/2025 13:51:44 No significant changes Electronically Signed On 07-26-2025 06:39:56 CDT by Checo Minor M.D.
[2025-07-25 17:16] VITALS: BP 116/75; PULSE 65; RESP 18; O2SAT 100
[2025-07-25 17:35] LABS: Troponin I < 0.012 ng/mL (0.000-0.034)
[2025-07-25 18:35] VITALS: BP 132/76; PULSE 67; RESP 18; O2SAT 100
== END 2025-07-25 18:35 | disposition home or self-care (01) ==
PROVIDERS: Family Medicine; Emergency Provider Emergency Medicine; PCP Family Medicine
DX: R07.89 Other chest pain (principal); E03.9 Hypothyroidism, unspecified; E66.9 Obesity, unspecified; Z68.30 Body mass index [BMI] 30.0-30.9, adult; F32.A Depression, unspecified; Z79.899 Other long term (current) drug therapy
CPT/HCPCS: 36415; 71046; 80053; 83690; 84484; 85025; 85610; 85730; 93005; 99284; A9270